=== PATIENT | male | born 1990 ===

== ENCOUNTER → 2023-10-03 | Outpatient (CLI) | payer OTHER, MEDICAID ==
[2023-10-03 14:20] LABS: Urine Epithelial Cast None Seen /hpf (<5)
[2023-10-03 14:35] LABS: Basophils # (auto) 0.1 10 ^3/uL (0-0.2); Basophils % (auto) 0.8 % (0.0-2.0); Eosinophils # (auto) 0.1 10 ^3/uL (0-0.8); Eosinophils % (auto) 1.6 % (0.0-7.0); Hematocrit 49.6 % (41.0-53.0); Hemoglobin 15.8 g/dL (13.5-17.5); Lymphocytes # (auto) 2.7 10 ^3/uL (0.4-5.4); Lymphocytes % (auto) 30.2 % (10.0-50.0); Mean Corpuscular Hemoglobin 25.7 pg (28.0-32.0); Mean Corpuscular Hgb Conc. 31.7 g/dL (32.0-36.0); Mean Corpuscular Volume 80.8 fL (80.0-100.0); Monocytes # (auto) 0.6 10 ^3/uL (0-1.3); Monocytes % (auto) 6.8 % (0.0-12.0); Neutrophils # (auto) 5.4 10 ^3/uL (1.6-8.6); Neutrophils % (auto) 60.6 % (37.0-80.0); Nucleated Red Blood Cells % 0.1 %; Red Blood Cells 6.14 10^6/uL (4.5-5.90); Red Cell Distribution Width 14.9 % (11.8-14.3); Urine Bacteria NONE SEEN /hpf (None Seen); Urine Blood 1+ /uL (Negative); Urine Clarity Clear (Clear); Urine Color Yellow (Yellow); Urine Mucus FEW (None Seen); Urine Protein, UAD Negative (Negative); Urine Specific Gravity 1.025 (1.001-1.035); Urine Urobilinogen Normal (Negative); Urine WBC 1 /hpf (0 - 3); Urine pH 5.5 (5.0-8.0); White Blood Cell 8.8 10^3/uL (4.4-10.8)
[2023-10-03 15:17] LABS: Triglycerides 76 mg/dL (< 150)
[2023-10-03 15:18] LABS: LDL Cholesterol 169 mg/dL (< 100)
[2023-10-03 15:19] LABS: Cholesterol 226 mg/dL (< 200); HDL Cholesterol 46 mg/dL (40-59)
[2023-10-04 06:06] LABS: RPR Non Reactive (Non Reactive)
[2023-10-04 08:35] LABS: Hepatitis B Surface Antigen Negative (Negative)
[2023-10-04 08:56] LABS: Hepatitis A Ab IgM Negative
[2023-10-04 08:57] LABS: Hepatitis B Core IgM Negative
[2023-10-04 23:07] LABS: Chlamydia Trachomatis, NAA Negative (Negative); Neisseria gonorrhoeae, NAA Negative (Negative)
== END | disposition home or self-care (01) ==
LOC: LAB 14:00
DX: R31.9 Hematuria, unspecified (principal); E66.01 Morbid (severe) obesity due to excess calories; Z20.2 Contact with and (suspected) exposure to infections with a predominantly sexual mode of transmission; R23.9 Unspecified skin changes
CPT/HCPCS: 36415; 80061; 81001; 82306; 84439; 84443; 85025; 86592; 86703; 86705; 86709; 86803; 87340